=== PATIENT | male | born 1995 | race Caucasian/White ===

== ENCOUNTER 2018-01-24 01:47 | Emergency (ER) | payer SELFPAY ==
[~2018-01-24] VITALS: Ht 177.8 cm; Wt 68.0 kg
[2018-01-24 02:07] VITALS: BP 109/53
[2018-01-24] MEDS ORDERED: Bacitracin Oint UD TOPIC ONE ×2 (02:19→02:30)
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
[2018-01-24] MEDS ORDERED: Tetanus/Diptheria/Pertussis Vaccine 0.5ml Syr IM ONE ×2 (02:25→02:30)
[2018-01-24] MEDS ORDERED: BACITRACIN ZIN1 EACH TOPIC (02:40)
[2018-01-24 02:54] VITALS: BP 109/53
== END 2018-01-24 02:54 | disposition home or self-care (01) ==
LOC: EMR 02:25
DX: S00.93XA Contusion of unspecified part of head, initial encounter (principal); S01.81XA Laceration without foreign body of other part of head, initial encounter; F41.9 Anxiety disorder, unspecified; Z23 Encounter for immunization; Y04.8XXA Assault by other bodily force, initial encounter
CPT/HCPCS: 90471; 90715; 99283